=== PATIENT | female | born 1960 | race Caucasian/White ===

== ENCOUNTER 2024-09-17 23:42 | Inpatient (IN) | payer MEDICARE ==
[~2024-09-17] VITALS: Ht 154.9 cm; Wt 72.0 kg
[2024-09-17] MEDS ORDERED: LACTATED RINGER'S 1,000 ML IV ONE ×2 (23:50)
[2024-09-17] MEDS ORDERED: INSULIN REGULAR (HUMAN) 100 UNIT/ML INJ IV ONE (23:55)
[2024-09-17] MEDS ORDERED: ONDANSETRON HCl 4 MG/2 ML SDV IV ONE (23:55)
[2024-09-17] MEDS ORDERED: Pantoprazole Sodium 40 MG VIAL (Protonix) IV ONE (23:55)
[2024-09-17 23:59] VITALS: BP 108/54
[2024-09-18] VITALS (55 sets, daily range): BP systolic 73–131; BP diastolic 31–92
[2024-09-18 00:18] LABS: BASO% 0.1 % (0-3); EOS% 0.1 % (0-8); HEMATOCRIT 36.2 % (37.0-47.0); HEMOGLOBIN 10.6 g/dl (12.0-16.0); LYMPH% 5.3 % (15-41); MEAN CORPUSCULAR HGB 30.5 pG CALC (26.0-32.0); MEAN CORPUSCULAR HGB CONC 29.3 g/dL CAL (32.0-36.0); MONO% 14.2 % (2-13); NEUT# 20.78 thou/uL (2.00-7.15); NEUT% 75.1 % (42-76); PLATELET COUNT 199 thou/uL (130-400); RED BLOOD COUNT 3.48 mill/uL (4.20-5.60); RED CELL DISTRI WIDTH 12.1 % (11.5-15.5)
[2024-09-18 00:24] LABS: ALBUMIN 3.3 g/dL (3.2-5.0); ALKALINE PHOSPHATASE 99 u/l (38-126); BILIRUBIN, TOTAL 0.4 mg/dL (0.02-1.3); CHLORIDE 92 mmol/l (95-108); SGOT/AST 25 u/l (9-36); TOTAL PROTEIN 5.9 g/dL (6.3-8.2)
[2024-09-18 00:33] LABS: ANION GAP 32 (6-22 (CALC)); BUN 51 mg/dL (8-23); BUN/CREATININE RATIO 21 (12-20 (CALC)); CARBON DIOXIDE < 5 mmol/l (22-30); CREATININE 2.4 mg/dL (0.5-1.0); ESTIMATED GFR 22 ML/MIN (>=90 (CALC)); SODIUM 123 mmol/l (137-146)
[2024-09-18 00:34] LABS: POTASSIUM 6.2 mmol/l (3.5-5.1)
[2024-09-18 00:39] LABS: IMMATURE GRANULOCYTES 5.2 % (0.0-5.0)
[2024-09-18] MEDS ORDERED: CALCIUM GLUCONATE 1 GM in SODIUM CHLORIDE 0.9% 50 ML IV ONE (00:45)
[2024-09-18] MEDS ORDERED: SODIUM CHLORIDE 0.9% 1,000 ML IV PRN (01:05)
[2024-09-18] MEDS ORDERED: INSULIN REGULAR (HUMAN) IN SOD 100 ML IV PRN (01:25)
[2024-09-18] MEDS ORDERED: OZEMPIC4 MG (01:42)
[2024-09-18] MEDS ORDERED: DULOXETINE HCL60 MG (01:42)
[2024-09-18] MEDS ORDERED: PIOGLITAZONE HC45 MG (01:43)
[2024-09-18] MEDS ORDERED: METFORMIN500 M2 PO (01:43)
[2024-09-18] MEDS ORDERED: LISINOPRIL20 M1 PO (01:44)
[2024-09-18] MEDS ORDERED: RISPERDAL1 MG PO (01:44)
[2024-09-18] MEDS ORDERED: RISPERIDONE0.25 MG (01:44)
[2024-09-18] MEDS ORDERED: LANTUS SOL100 UNIT/M SC (01:45)
[2024-09-18] MEDS ORDERED: PEPCID40 MG PO (01:47)
[2024-09-18] MEDS ORDERED: FOLIC ACID1 MG PO (01:48)
[2024-09-18] MEDS ORDERED: [UNRECOGNIZED DRUG - OTHER] (01:48)
[2024-09-18] MEDS ORDERED: OZEMPIC4 MG SC (01:49)
[2024-09-18] MEDS ORDERED: ONDANSETRON4 MG PO (01:50)
[2024-09-18] MEDS ORDERED: POTASSIUM CHLORIDE IN NACL 1,000 ML IV PRN (03:20)
[2024-09-18] MEDS ORDERED: ONDANSETRON HCl 4 MG/2 ML SDV IV PRN (03:20)
[2024-09-18] MEDS ORDERED: DEXTROSE 5% w/NACL 0.45 1,000 ML IV PRN (03:20)
[2024-09-18] MEDS ORDERED: D5 1/2 NaCL W/KCL 20MEQ 1,000 ML IV PRN (03:20)
[2024-09-18] MEDS ORDERED: SODIUM CHLORIDE 0.45% 1,000 ML IV PRN (03:20)
[2024-09-18 06:52] LABS: ALBUMIN 3.3 g/dL (3.2-5.0); ALKALINE PHOSPHATASE 86 u/l (38-126); BUN 55 mg/dL (8-23); BUN/CREATININE RATIO 26 (12-20 (CALC)); CHLORIDE 95 mmol/l (95-108); CREATININE 2.1 mg/dL (0.5-1.0); ESTIMATED GFR 26 ML/MIN (>=90 (CALC)); SGOT/AST 35 u/l (9-36); SODIUM 126 mmol/l (137-146); TOTAL PROTEIN 5.8 g/dL (6.3-8.2)
[2024-09-18 06:53] LABS: ANION GAP 31 (6-22 (CALC)); BILIRUBIN, TOTAL 0.6 mg/dL (0.02-1.3); CARBON DIOXIDE < 5 mmol/l (22-30); POTASSIUM 4.7 mmol/l (3.5-5.1)
[2024-09-18 10:34] LABS: ALBUMIN 3.2 g/dL (3.2-5.0); BILIRUBIN, TOTAL 0.6 mg/dL (0.02-1.3); CREATININE 1.8 mg/dL (0.5-1.0); POTASSIUM 4.8 mmol/l (3.5-5.1); TOTAL PROTEIN 5.8 g/dL (6.3-8.2)
[2024-09-18] MEDS ORDERED: risperiDONE 2 MG/TAB PO SCH (14:01)
[2024-09-18 14:25] LABS: ALBUMIN 3.2 g/dL (3.2-5.0); BILIRUBIN, TOTAL 0.7 mg/dL (0.02-1.3); CREATININE 1.5 mg/dL (0.5-1.0); TOTAL PROTEIN 6.1 g/dL (6.3-8.2)
[2024-09-18 14:26] LABS: POTASSIUM 5.1 mmol/l (3.5-5.1)
[2024-09-18] MEDS ORDERED: cefTRIAXone SODIUM 2 GM in SODIUM CHLORIDE 0.9% 100 ML IV SCH (14:30)
[2024-09-18] MEDS ORDERED: Pantoprazole Sodium 40 MG VIAL (Protonix) IV SCH (14:30)
[2024-09-18] MEDS ORDERED: risperiDONE 0.5 MG/TAB PO SCH ×2 (15:30→21:00)
[2024-09-18 17:08] LABS: HEMATOCRIT 35.6 % (37.0-47.0); MEAN CELL VOLUME 98.6 fL CALC (80.0-100.0); MEAN CORPUSCULAR HGB 30.5 pG CALC (26.0-32.0); MEAN CORPUSCULAR HGB CONC 30.9 g/dL CAL (32.0-36.0); RED BLOOD COUNT 3.61 mill/uL (4.20-5.60); RED CELL DISTRI WIDTH 12.5 % (11.5-15.5)
[2024-09-18 17:30] LABS: ALBUMIN 3.1 g/dL (3.2-5.0); BILIRUBIN, TOTAL 0.4 mg/dL (0.02-1.3); CREATININE 1.3 mg/dL (0.5-1.0); POTASSIUM 4.4 mmol/l (3.5-5.1); TOTAL PROTEIN 5.7 g/dL (6.3-8.2)
[2024-09-18 18:18] LABS: URINE BLOOD DIPSTICK Trace-lysed (NEGATIVE); URINE GLUCOSE - DIPSTICK 500 mg/dL (NEGATIVE); URINE KETONE 40 mg/dL (NEGATIVE); URINE LEUK ESTERASE Negative (NEGATIVE); URINE NITRITE - DIPSTICK Negative (Negative); URINE PROTEIN - DIPSTICK Negative (NEG-TRACE); URINE SPECIFIC GRAVITY <=1.005; URINE UROBILINOGEN - DIPSTICK 0.2 E.U./dL (0.2)
[2024-09-18 18:19] LABS: URINE COLOR Light yellow
[2024-09-18 22:30] LABS: ALBUMIN 3.3 g/dL (3.2-5.0); BILIRUBIN, TOTAL 0.3 mg/dL (0.02-1.3); CREATININE 1.1 mg/dL (0.5-1.0); POTASSIUM 3.7 mmol/l (3.5-5.1); TOTAL PROTEIN 6.3 g/dL (6.3-8.2)
[2024-09-19] VITALS (32 sets, daily range): BP systolic 73–119; BP diastolic 40–65
[2024-09-19 00:27] LABS: ALBUMIN 3.1 g/dL (3.2-5.0); BILIRUBIN, TOTAL 0.3 mg/dL (0.02-1.3); POTASSIUM 3.6 mmol/l (3.5-5.1); TOTAL PROTEIN 5.9 g/dL (6.3-8.2)
[2024-09-19 04:46] LABS: ALBUMIN 2.7 g/dL (3.2-5.0); BILIRUBIN, TOTAL 0.3 mg/dL (0.02-1.3); CREATININE 0.9 mg/dL (0.5-1.0); MAGNESIUM 1.9 mg/dL (1.6-2.3); POTASSIUM 3.5 mmol/l (3.5-5.1); TOTAL PROTEIN 5.2 g/dL (6.3-8.2)
[2024-09-19 04:53] LABS: HEMATOCRIT 33.2 % (37.0-47.0); HEMOGLOBIN 10.3 g/dl (12.0-16.0); MEAN CELL VOLUME 98.8 fL CALC (80.0-100.0); MEAN CORPUSCULAR HGB 30.7 pG CALC (26.0-32.0); RED BLOOD COUNT 3.36 mill/uL (4.20-5.60); RED CELL DISTRI WIDTH 12.8 % (11.5-15.5)
[2024-09-19] MEDS ORDERED: DEXTROSE 250 ML IV PRN (07:30)
[2024-09-19] MEDS ORDERED: INSULIN GLARGINE 100 UNITS/ML SC SCH (08:00)
[2024-09-19] MEDS ORDERED: INSULIN LISPRO 100 UNITS/ML ML SC SCH (11:00)
[2024-09-20 05:01] VITALS: BP 109/84
[2024-09-20 05:41] LABS: HEMOGLOBIN 9.5 g/dl (12.0-16.0); MEAN CELL VOLUME 97.4 fL CALC (80.0-100.0); MEAN CORPUSCULAR HGB 30.8 pG CALC (26.0-32.0); MEAN CORPUSCULAR HGB CONC 31.7 g/dL CAL (32.0-36.0); RED BLOOD COUNT 3.08 mill/uL (4.20-5.60); RED CELL DISTRI WIDTH 13.2 % (11.5-15.5)
[2024-09-20 05:50] LABS: ALBUMIN 2.4 g/dL (3.2-5.0); BILIRUBIN, TOTAL 0.3 mg/dL (0.02-1.3); CREATININE 0.6 mg/dL (0.5-1.0); MAGNESIUM 1.7 mg/dL (1.6-2.3); POTASSIUM 3.2 mmol/l (3.5-5.1); TOTAL PROTEIN 4.8 g/dL (6.3-8.2)
[2024-09-20] MEDS ORDERED: POTASSIUM CHLORIDE 20 MEQ/TAB PO SCH (07:00)
[2024-09-20 08:38] VITALS: BP 115/59
[2024-09-20 09:00] VITALS: BP 95/50
[2024-09-20 10:06] VITALS: BP 136/68
[2024-09-20 11:00] VITALS: BP 100/55
[2024-09-20 12:01] VITALS: BP 140/68
[2024-09-20] MEDS ORDERED: INSULIN GLARGINE 100 UNITS/ML SC SCH (12:37)
[2024-09-20] MEDS ORDERED: DEXTROSE 250 ML IV PRN (12:40)
== END 2024-09-20 13:45 | DRG 917 ==
LOC: ED 23:42 → ED-I 09-18 00:41 → ED 09-18 00:50 → ICU 09-18 00:51
PROVIDERS: Family Medicine; ADMIT Internal Medicine; ATTEND Internal Medicine
DX: T38.3X1A Poisoning by insulin and oral hypoglycemic [antidiabetic] drugs, accidental (unintentional), initial encounter (principal); E11.10 Type 2 diabetes mellitus with ketoacidosis without coma; F31.81 Bipolar II disorder; N17.9 Acute kidney failure, unspecified; G93.49 Other encephalopathy; E86.0 Dehydration; I10 Essential (primary) hypertension; D72.829 Elevated white blood cell count, unspecified; Z85.3 Personal history of malignant neoplasm of breast; Z79.4 Long term (current) use of insulin; Z79.85 Long-term (current) use of injectable non-insulin antidiabetic drugs; Z79.84 Long term (current) use of oral hypoglycemic drugs
CPT/HCPCS: J0612; J0696; J1815; J2405; J2470